=== PATIENT | female | born 1985 | race Caucasian/White ===

== ENCOUNTER → 2017-03-23 | Outpatient (CLI) | payer OTHER | LOC: MW.LAB 08:16 | PROVIDERS: ATTEND Specialist | DX: Z31.83 Encounter for assisted reproductive fertility procedure cycle (principal) | CPT/HCPCS: 36415; 82670; 84443 ==

== ENCOUNTER 2017-07-07 12:58 | Emergency (ER) | payer OTHER ==
--- NOTE | 2017-07-07 13:27 | EDM.PDOC ---
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 and presents with issues of seeing pink or red discharge when she wipes. According to the patient she has had nausea and intermittent vomiting threat this entire and takes Diglegis and has a prescription for Phenergan that she has not filled. She says she usually can tolerate the nausea and she will only have intermittent vomiting. The patient says that this morning she had the nausea and vomiting and she thought she had to urinate at the same time so she sat on the toilet and when she wiped after urinating, which was very forceful and she vomited simultaneously with passing her urine, she noticed some pink tinge to the toilet tissue. She says that she has continued to see that pink tinge and then she noticed some redness while she was in a class today here at the hospital--she noticed on her light pad. She is not gushing blood and has not had to use a heavy pad.. The patient says that she has had cramps and aching in her pelvis but that has been ongoing for several weeks and is not new or different. The patient has not had sexual intercourse in the last several days. The patient has no surgical history except a cholecystectomy and says that she has hypothyroidism for which she takes medication. The patient currently denies any abdominal or pelvic discomfort that is new or different and she has no dysuria frequency or flank pain. She's currently not nauseated. Patient says she is eating and drinking in between the nausea and vomiting. Dr. Dany urbano about this patient and she contacted her directly and she requested that we've these seeing her in here in the ED for evaluation for cervicitis and also perform an ultrasound. Patient is an IVF twin gestation Review of systems: As per history of present illness and below otherwise all systems reviewed and negative. Past medical history: As per history of present illness and as reviewed below otherwise noncontributory. Surgical history: As per history of present illness and as reviewed below otherwise noncontributory. Social history: No reported history of drug or alcohol abuse. Family history: As per history of present illness and as reviewed below otherwise noncontributory. Physical exam: Gen.: Well-developed well-nourished female who is mildly overweight and nontoxic appearing. She moves easily in the bed. HEENT: Atraumatic, normocephalic, negative for conjunctival pallor or scleral icterus, mucous membranes moist, throat clear, neck supple, nontender, trachea midline. Lungs: Clear to auscultation, breath sounds equal bilaterally, chest nontender. Heart: S1S2, regular rate and rhythm no overt murmurs Abdomen: Soft, nondistended, nontender. Negative for masses or hepatosplenomegaly. Negative for costovertebral tenderness. Pelvis: Stable nontender. Genitourinary: Sternal genitalia are within normal limits without any lesions or masses or erythema, there is a copious amount of grayish cloudy discharge in the vault but no blood is visualized, the cervix was not friable and the os was closed, the uterus was age-appropriate size without tenderness Rectal: Deferred. Extremities: Atraumatic, negative for cords or calf pain. Neurovascular unremarkable. Neuro: Awake, alert, oriented. Cranial nerves II through XII unremarkable. Cerebellum unremarkable. Motor and sensory unremarkable throughout. Exam nonfocal. Diagnostics: UA, urine culture if indicated, pelvic ultrasound specifically identified cervical length per direction of Dr. Corbett, probe for trichomoniasis Gardnerella and yeast Therapeutics: 1549: There are numerous delays with getting the appropriate information from this pelvic ultrasound, more specifically an exact cervical length. I discussed this case with Dr. corbett who is comfortable with discharging the patient home with close follow-up in the clinic. I advised the patient to continue her Diclegis and to fill her prescription for Phenergan so that she can improve her nausea and vomiting. I advised her to push hydration and to continue to monitor if she's having a vaginal spotting and also to monitor her urine to see if there is bleeding in the urine. I advised her to call the clinic on Sunday and reasons to return to the ED. Once I am able to get an exact cervical length from teleradiology I will notify Dr. corbett per her direction if it is less than 2 cm Impression: Vaginal bleeding in second trimester , twin gestation stable Definitive disposition and diagnosis as appropriate pending reevaluation and review of above. - Related Data Allergies Allergy/AdvReac Type Severity Reaction Status Date / Time No Known Allergies Allergy Verified 07/07/17 13:10 Home Meds: Home Meds Doxylamine/Pyridoxine HCl [Diclegis Dr 10-10 mg Tablet] 2 tab PO 07/07/17 [ History] Levothyroxine [Synthroid] 50 mcg PO ACBREAKFAST 07/07/17 [History] Social & Family History - Tobacco Use Smoking Status *Q: Never Smoker Second Hand Smoke Exposure: No - Alcohol Use Days Per Week of Alcohol Use: 0 - Recreational Drug Use Recreational Drug Use: No ED ROS GENERAL - Review of Systems Review Of Systems: ROS reveals no pertinent complaints other than HPI. ED EXAM, GENERAL - Physical Exam Exam: See Below (See dictation) Course - Vital Signs Last Recorded V/S: Last Vital Signs Temp 36.5 C 07/07/17 13:07 Pulse 101 H 07/07/17 13:07 Resp 12 07/07/17 13:07 BP 146/89 H 07/07/17 13:07 Pulse Ox 97 07/07/17 13:07 - Orders/Labs/Meds Orders: Active Orders 24 hr Category Date Time Status OB 2 Or 3 Tri Sgl 1st Gest [US] Stat Exams 07/07/17 13:21 Taken CULTURE GENITAL [RM] Stat Lab 07/07/17 14:17 Received Labs: Laboratory Tests 07/07/17 07/07/17 Range/Units 13:23 14:17 Urine Color LEW Urine Appearance CLEAR Urine pH 5.5 (5.0-8.0) Ur Specific Eagar >= 1.030 (1.001-1.035) Urine Protein NEGATIVE (NEGATIVE) mg/dL Urine Glucose (UA) NEGATIVE (NEGATIVE) mg/dL Urine Ketones NEGATIVE (NEGATIVE) mg/dL Urine Occult Blood LARGE H (NEGATIVE) Urine Nitrite NEGATIVE (NEGATIVE) Urine Bilirubin NEGATIVE (NEGATIVE) Urine Urobilinogen 0.2 (<2.0) EU/dL Ur Leukocyte Esterase NEGATIVE (NEGATIVE) Urine RBC 30-40 (0-2/HPF) Urine WBC 0-5 (0-5/HPF) Ur Epithelial Cells MODERATE (NONE-FEW) Urine Bacteria FEW (NEGATIVE) Sari species DNA NEGATIVE (NEGATIVE) Gardnerella DNA Probe NEGATIVE (NEGATIVE) Trichomonas DNA Probe NEGATIVE (NEGATIVE) Departure - Departure Time of Disposition: 15:57 Disposition: Home, Self-Care 01 Condition: Good Clinical Impression: Vaginal bleeding in Twin Qualifiers: Multiple gestation type: unspecified Trimester: second trimester Qualified Code (s): O30.002 - Twin , unspecified number of placenta and unspecified number of amniotic sacs, second trimester - Discharge Information Referrals: Tobias Dubois MD [Primary Care Provider] - Forms: ED Department Discharge Additional Instructions: The following information is given to patients seen in the emergency department who are being discharged to home. This information is to outline your options for follow-up care. We provide all patients seen in our emergency department with a follow-up referral. The need for follow-up, as well as the timing and circumstances, are variable depending upon the specifics of your emergency department visit. If you don't have a primary care physician on staff, we will provide you with a referral. We always advise you to contact your personal physician following an emergency department visit to inform them of the circumstance of the visit and for follow-up with them and/or the need for any referrals to a consulting specialist. The emergency department will also refer you to a specialist when appropriate. This referral assures that you have the opportunity for followup care with a specialist. All of these measure are taken in an effort to provide you with optimal care, which includes your followup. Under all circumstances we always encourage you to contact your private physician who remains a resource for coordinating your care. When calling for followup care, please make the office aware that this follow-up is from your recent emergency room visit. If for any reason you are refused follow-up, please contact the [facility] emergency department at and ask to speak to the emergency department charge nurse. [facility] [address] [place] [address] [phone] Push hydration, nothing in the vagina until you're cleared by Dr. Noguera and please call the clinic on Sunday for follow-up as we discussed. Return to ER as needed and as discussed. Please fill your prescription for Phenergan if you have not done so are ready and start taking it as needed and as we discussed. Please monitor your urine output as we discussed - My Orders Last 24 Hours: My Active Orders 07/07/17 13:21 OB 2 Or 3 Tri Sgl 1st Gest [US] Stat 07/07/17 14:17 CULTURE GENITAL [RM] Stat - Assessment/Plan Last 24 Hours: My Active Orders 07/07/17 13:21 OB 2 Or 3 Tri Sgl 1st Gest [US] Stat 07/07/17 14:17 CULTURE GENITAL [RM] Stat
[2017-07-07 16:29] VITALS: BP 143/83
--- NOTE | 2017-07-09 13:56 | US ---
EXAM DATE: 07/07/17 PATIENT'S AGE: 31 Patient: BHARAT NAVARRO Facility: [place], [place] Site . Site : 1985 Study: US OB Pelvis [id number] 2:41:33 PM Ordering Physician: Arron Rain Final Report: HISTORY: Twin , spotting. TECHNIQUE: Obstetric ultrasound. COMPARISON: No prior. FINDINGS: Living twin gestation. Closed normal length cervix. Fetus A: Calculated gestational age of 15 weeks, 6 days based on ultrasound measurements with an estimated weight of 132 g which is at the 38th percentile. heart rate 150 beats per minute. - Measurements: Biparietal diameter 3.1 cm 15 weeks, 6 days. Head circumference 11.7 cm 15 weeks, 6 days. Abdominal circumference 9.6 cm 15 weeks, 6 days. Femur length 1.9 cm 15 weeks, 5 days. - There is a normal quantity amniotic fluid within the gestational sac of fetus A. No complications. - - Fetus B: Calculated gestational age based on ultrasound measurements of 15 weeks , 6 days. Estimated weight is 133 g which is at the 31st percentile. Heart rate of fetus B is 146 beats per minute. - Measurements: Biparietal diameter 3.1 cm 15 weeks, 6 days. Head circumference 11.8 cm 15 weeks, 6 days. Abdominal circumference 9.8 cm 15 weeks, 6 days. Femur length 1.9 cm 15 weeks, 4 days. - There is a normal quantity of amniotic fluid within the gestational sac of fetus B. No complications. IMPRESSION: 1. Living twin gestation with calculated gestational age based on ultrasound measurements of 15 weeks, 6 days. Concordant size of fetus A and B. 2. No complications seen. Dictated by Jeremiah Padilla MD @ 07/07/2017 2:55:53 PM Dictated by: Jeremiah Padilla MD @ 07/07/2017 14:56:02 ----- ADDENDUM ----- Addendum: I was asked to review this case and comment on the cervical length.The cervix is measured on several images with endovaginal technique. It measures between 3.6 and 4.6 cm. There is no prolapse of parts or funneling. Sonolucency adjacent to the cervix on image 4, series 1-1, is nonspecific, but may be related to tissue edema/fluid. This is amenable to sonographic followup. Dictated by Tito Gaviria MD @ Jul 07 2017 4:39PM (Electronic Signature) Report Signed by Proxy. FERNANDA
== END 2017-07-07 16:07 | disposition home or self-care (01) ==
LOC: MW.ED 12:58
DX: O20.9 Hemorrhage in early pregnancy, unspecified (principal); O30.002 Twin pregnancy, unspecified number of placenta and unspecified number of amniotic sacs, second trimester; E03.9 Hypothyroidism, unspecified; Z90.49 Acquired absence of other specified parts of digestive tract; Z3A.16 16 weeks gestation of pregnancy
CPT/HCPCS: 76805; 76805-26; 81001; 87070; 87480; 87510; 87660; 99283; 99284-25

== ENCOUNTER 2020-07-23 19:51 | Emergency (ER) | payer OTHER ==
[2020-07-23] MEDS ORDERED: Sodium Chloride 0.9% 10 ML Syringe FLUSH PRN (20:13)
[2020-07-23] MEDS ORDERED: Sodium Chloride 0.9% 2.5 ML Syringe FLUSH PRN (20:13)
--- NOTE | 2020-07-23 20:24 | EDM.PDOC ---
ED HPI GENERAL MEDICAL PROBLEM - General Chief Complaint: Chest Pain Stated Complaint: CHEST PAIN, HEAVINESS Time Seen by Provider: 07/23/20 20:06 - History of Present Illness INITIAL COMMENTS - FREE TEXT/NARRATIVE: History of present illness: [] The patient woke up feeling okay. Then shortly after she woke up she began to have occasional pains that felt like somebody was stabbing her with a knife in the left anterior chest. This was above the area of the nipple or thereabouts. It happened intermittently but with increasing frequency throughout the day. Gradually but she began to feel like she cannot get a deep breath and therefore is a little short of breath. She has no fever cough diaphoresis or nausea. The pain is now associated with a fairly constant pressure over the left side of her chest and feels like somebody sitting on her. The patient's past history is positive for twice and obesity. She is not treated for diabetes cholesterol hypertension. She does not have any recent trips or immobilization. She is not on exogenous hormones. She does not smoke. The patient's family history is negative for thromboembolic disease, premature coronary vessel disease, or stroke. Review of systems: As per history of present illness and below otherwise all systems reviewed and negative. Past medical history: As per history of present illness and as reviewed below otherwise noncontributory. Surgical history: As per history of present illness and as reviewed below otherwise noncontributory. Social history: No reported history of drug or alcohol abuse. Family history: As per history of present illness and as reviewed below otherwise noncontributory. Physical exam: Constitutional -he is, well developed, well-nourished and in no acute distress HEENT - normocephalic, no evidence of trauma - external nose and mouth normal - no mass in neck and no JVD - mucosae moist EYES - full EOM, PERRL, no icterus - no evidence of inflammation, injection, or drainage Respiratory - no respiratory distress, equal bilateral expansion, lungs clear to auscultation and no abnormal lung sounds Cardiovascular - Regular Rhythm with S1 and S2 appreciated and no murmur, gallop or rub. GI - abdomen soft without distension or organomegaly - normal bowel sounds - no guard or rebound Musculoskeletal no gross deformity of long bones or joints - no tenderness, swelling or edema Neurologic - Alert and oriented times four - CN II-XII grossly intact - motor sensory and coordination symmetrically normal Psychiatric - appropriate mood and affect with normal thought content Hematologic - No petechiae or purpura - mucosa appropriate color and sclera not pale - normal nail bed color and refill Integument - no rash or evidence of trauma - normal turgor Diagnostics: [] Therapeutics: [] Impression: [] Plan: [] Definitive disposition and diagnosis as appropriate pending reevaluation and review of above. 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 ED EXAM, GENERAL - Physical Exam Exam: See Below Free Text/Narrative:: My physical exam is in the HPI EKG INTERPRETATION EKG Date: 07/23/20 Time: 20:29 Rhythm: NSR Rate (Beats/Min): 69 [place]: Normal P-Wave: Present QRS: Normal Comparison: No Change (02/12/2015 there is no change except the rate is now normal. impression no acute distress) Course - Vital Signs Text/Narrative:: Did well. Patient only gets 5 or 6 hours of sleep at night and has 2 3-year-olds at home. Costochondritis is the most likely diagnosis and something to reduce sleep plus anti-inflammatory are suggested Last Recorded V/S: Last Vital Signs Temp 97 F 07/23/20 19:58 Pulse 81 07/23/20 19:58 Resp 07/23/20 19:58 BP 139/78 07/23/20 19:58 Pulse Ox 97 07/23/20 19:58 - Orders/Labs/Meds Orders: Active Orders 24 hr Category Date Time Status EKG Documentation Completion [RC] AM Care 07/23/20 20:13 Active Sodium Chloride 0.9% [Saline Flush] Med 07/23/20 20:13 Active 10 ml FLUSH ASDIRECTED PRN Sodium Chloride 0.9% [Saline Flush] Med 07/23/20 20:13 Active 2.5 ml FLUSH ASDIRECTED PRN Saline Lock Insert [OM.PC] Stat Oth 07/23/20 20:13 Ordered Medication Orders Sodium Chloride (Saline Flush) 10 ml FLUSH ASDIRECTED PRN PRN Reason: Keep Vein Open Sodium Chloride (Saline Flush) 2.5 ml FLUSH ASDIRECTED PRN PRN Reason: Keep Vein Open Labs: Laboratory Tests 07/23/20 07/23/20 07/23/20 Range/Units 20:00 20:00 20:00 WBC 9.83 (4.0-11.0) K/uL RBC 4.91 (4.30-5.90) M/uL Hgb 14.6 (12.0-16.0) g/dL Hct 43.2 (36.0-46.0) % MCV 88.0 (80.0-98.0) fL MCH 29.7 (27.0-32.0) pg MCHC 33.8 (31.0-37.0) g/dL RDW Std Deviation 39.0 (28.0-62.0) fl RDW Coeff of Golden 12 (11.0-15.0) % Plt Count 257 (150-400) K/uL MPV 10.60 (7.40-12.00) fL Neut % (Auto) 50.4 (48.0-80.0) % Lymph % (Auto) 39.9 (16.0-40.0) % [place] % (Auto) 7.9 (0.0-15.0) % Eos % (Auto) 1.5 (0.0-7.0) % Baso % (Auto) 0.3 (0.0-1.5) % Neut # (Auto) 5.0 (1.4-5.7) K/uL Lymph # (Auto) 3.9 H (0.6-2.4) K/uL [place] # (Auto) 0.8 (0.0-0.8) K/uL Eos # (Auto) 0.2 (0.0-0.7) K/uL Baso # (Auto) 0.0 (0.0-0.1) K/uL Nucleated RBC % 0.0 /100WBC Nucleated RBCs # 0 K/uL D-Dimer, Quantitative (0.0-0.50) mg/L FEU Sodium 141 (136-145) mmol/L Potassium 3.9 (3.5-5.1) mmol/L Chloride 105 (98-107) mmol/L Carbon Dioxide 27.4 (21.0-32.0) mmol/L BUN 13 (7.0-18.0) mg/dL Creatinine 1.0 (0.6-1.0) mg/dL Est Cr Clr Drug Dosing 79.96 mL/min Estimated GFR (MDRD) > 60.0 ml/min Glucose 117 H (74-106) mg/dL Calcium 8.7 (8.5-10.1) mg/dL Troponin I < 0.050 (0.000-0.056) ng/mL HCG, Qual NEGATIVE (NEG) 07/23/20 Range/Units 20:00 WBC (4.0-11.0) K/uL RBC (4.30-5.90) M/uL Hgb (12.0-16.0) g/dL Hct (36.0-46.0) % MCV (80.0-98.0) fL MCH (27.0-32.0) pg MCHC (31.0-37.0) g/dL RDW Std Deviation (28.0-62.0) fl RDW Coeff of Golden (11.0-15.0) % Plt Count (150-400) K/uL MPV (7.40-12.00) fL Neut % (Auto) (48.0-80.0) % Lymph % (Auto) (16.0-40.0) % [place] % (Auto) (0.0-15.0) % Eos % (Auto) (0.0-7.0) % Baso % (Auto) (0.0-1.5) % Neut # (Auto) (1.4-5.7) K/uL Lymph # (Auto) (0.6-2.4) K/uL Dim[place] # (Auto) (0.0-0.8) K/uL Eos # (Auto) (0.0-0.7) K/uL Baso # (Auto) (0.0-0.1) K/uL Nucleated RBC % /100WBC Nucleated RBCs # K/uL D-Dimer, Quantitative 0.22 (0.0-0.50) mg/L FEU Sodium (136-145) mmol/L Potassium (3.5-5.1) mmol/L Chloride (98-107) mmol/L Carbon Dioxide (21.0-32.0) mmol/L BUN (7.0-18.0) mg/dL Creatinine (0.6-1.0) mg/dL Est Cr Clr Drug Dosing mL/min Estimated GFR (MDRD) ml/min Glucose (74-106) mg/dL Calcium (8.5-10.1) mg/dL Troponin I (0.000-0.056) ng/mL HCG, Qual (NEG) Meds: Medications Generic Name Dose Route Start Last Admin Trade Name Freq PRN Reason Stop Dose Admin Sodium Chloride 10 ml 07/23/20 20:13 Saline Flush FLUSH ASDIRECTED PRN Keep Vein Open Sodium Chloride 2.5 ml 07/23/20 20:13 Saline Flush FLUSH ASDIRECTED PRN Keep Vein Open Discontinued Medications Generic Name Dose Route Start Last Admin Trade Name Freq PRN Reason Stop Dose Admin Ketorolac Tromethamine 15 mg 07/23/20 21:12 Toradol IVPUSH 07/23/20 21:13 ONETIME ONE Departure - Departure Time of Disposition: 21:14 Disposition: Home, Self-Care 01 Condition: Good Clinical Impression: Costochondritis - Discharge Information Prescriptions: methylPREDNISolone [Medrol Dose Pack] 4 mg PO DAILY #21 tab Instructions: Costochondritis, [id number] Forms: ED Department Discharge Additional Instructions: The following information is given to patients seen in the emergency department who are being discharged to home. This information is to outline your options for follow-up care. We provide all patients seen in our emergency department with a follow-up referral. The need for follow-up, as well as the timing and circumstances, are variable depending upon the specifics of your emergency department visit. If you don't have a primary care physician on staff, we will provide you with a referral. We always advise you to contact your personal physician following an emergency department visit to inform them of the circumstance of the visit and for follow-up with them and/or the need for any referrals to a consulting specialist. The emergency department will also refer you to a specialist when appropriate. This referral assures that you have the opportunity for follow-up care with a specialist. All of these measure are taken in an effort to provide you with optimal care, which includes your follow-up. Under all circumstances we always encourage you to contact your private physician who remains a resource for coordinating your care. When calling for follow-up care, please make the office aware that this follow-up is from your recent emergency room visit. If for any reason you are refused follow-up, please contact the [facility] Emergency Department at and asked to speak to the emergency department charge nurse. [facility] [address] [place] [address] [place] [address] Sepsis Event Note (ED) - Evaluation Sepsis Screening Result: No Definite Risk - Focused Exam Vital Signs: Vital Signs Temp Pulse Resp BP Pulse Ox 07/23/20 19:58 97 F 81 19 139/78 97 - My Orders Last 24 Hours: My Active Orders 07/23/20 20:13 EKG Documentation Completion [RC] AM Sodium Chloride 0.9% [Saline Flush] 10 ml FLUSH ASDIRECTED PRN Sodium Chloride 0.9% [Saline Flush] 2.5 ml FLUSH ASDIRECTED PRN Saline Lock Insert [OM.PC] Stat - Assessment/Plan Last 24 Hours: My Active Orders 07/23/20 20:13 EKG Documentation Completion [RC] AM Sodium Chloride 0.9% [Saline Flush] 10 ml FLUSH ASDIRECTED PRN Sodium Chloride 0.9% [Saline Flush] 2.5 ml FLUSH ASDIRECTED PRN Saline Lock Insert [OM.PC] Stat
[2020-07-23 20:30] LABS: BLOOD UREA NITROGEN,BUN 13 mg/dL (7.0-18.0); CARBON DIOXIDE,CO2 27.4 mmol/L (21.0-32.0); CHLORIDE,CL 105 mmol/L (98-107); GLUCOSE RANDOM 117 mg/dL (74-106); POTASSIUM,K 3.9 mmol/L (3.5-5.1); SODIUM,NA 141 mmol/L (136-145)
--- NOTE | 2020-07-23 20:57 | CR ---
Chest: 2 views of the chest were obtained. Comparison: Prior chest x-ray of 02/12/15. Heart size and mediastinum are within normal limits for technique. Lungs are clear with no acute parenchymal change. Bony structures appear within normal limits for the patient's age. Impression: 1. Nothing acute is seen on 2 view chest x-ray. Diagnostic code #1 This report was dictated in MDT
[2020-07-23] MEDS ORDERED: Ketorolac 30 MG/ML SDV IVPUSH ONE (21:12)
[2020-07-23 21:40] VITALS: BP 126/76; PULSE 78
== END 2020-07-23 21:35 | disposition home or self-care (01) ==
LOC: MW.ED 19:51
DX: M94.0 Chondrocostal junction syndrome [Tietze] (principal)
CPT/HCPCS: 36415; 71046; 80048; 84484; 84703; 85025; 85379; 93005; 96374; 99285; J1885; 99284

== ENCOUNTER 2021-07-16 14:16 | Emergency (ER) | payer OTHER ==
[2021-07-16] MEDS ORDERED: Sodium Chloride 0.9% 2.5 ML Syringe FLUSH PRN (14:51)
[2021-07-16] MEDS ORDERED: Sodium Chloride 0.9% 10 ML Syringe FLUSH PRN (14:51)
--- NOTE | 2021-07-16 14:56 | EDM.PDOC ---
ED HPI GENERAL MEDICAL PROBLEM - General Chief Complaint: General Stated Complaint: LIGHT HEADED, FAINTED, BLACK STOOLS Time Seen by Provider: 07/16/21 14:44 - History of Present Illness INITIAL COMMENTS - FREE TEXT/NARRATIVE: 35-year-old female with no significant past medical history presenting with lightheadedness syncope after a bowel movement last night fatigue and black stool this morning. Patient states that throughout yesterday she did not feel very well she had some lightheadedness and some weakness. She went to have a bowel movement the vomit was soft but not particularly hard following the completion of the bowel movement she had profound lightheadedness followed by syncope. No palpitations no chest pain or shortness of breath. Throughout the morning she had weakness and fatigue. No nausea or vomiting no abdominal pain. She had a solitary episode of very dark almost black stool this afternoon. She is no history of recent NSAID use she is a non-smoker no history of GI bleeding though she does note some trouble with dyspepsia and she has been taking Tums for which she feels is heartburn for the last few days. - Related Data Allergies Allergy/AdvReac Type Severity Reaction Status Date / Time No Known Allergies Allergy Verified 07/16/21 14:45 Home Meds: Home Meds . [No Known Home Meds] 07/16/21 [History] Past Medical History - Past Health History Medical/Surgical History: Denies Medical/Surgical History HEENT History: Reports: None Cardiovascular History: Reports: None Respiratory History: Reports: Other (See Below) Other Respiratory History: pleurisy Gastrointestinal History: Reports: None Genitourinary History: Reports: None CLAY THROWER History: Reports: , Spontaneous Other CLAY THROWER History: x2 Musculoskeletal History: Reports: None Neurological History: Reports: None Psychiatric History: Reports: None Endocrine/Metabolic History: Reports: Hypothyroidism Hematologic History: Reports: None Immunologic History: Reports: None Oncologic (Cancer) History: Reports: None Dermatologic History: Reports: None - Infectious Disease History Infectious Disease History: Reports: Chicken Pox - Past Surgical History Head Surgeries/Procedures: Reports: None HEENT Surgical History: Reports: Tonsillectomy Respiratory Surgical History: Reports: None GI Surgical History: Reports: Cholecystectomy Female Surgical History: Reports: Section Endocrine Surgical History: Reports: None Social & Family History - Family History Family Medical History: No Pertinent Family History - Tobacco Use Tobacco Use Status *Q: Never Tobacco User Second Hand Smoke Exposure: No - Caffeine Use Caffeine Use: Reports: None - Recreational Drug Use Recreational Drug Use: No ED ROS GENERAL - Review of Systems Review Of Systems: See Below Free Text/Narrative/Comment: General: No fever. Skin: No rash. Eyes: No vision problems. ENT: No sore throat. Neck: No neck stiffness. Respiratory: No shortness of breath. Cardiac: No chest pain. Gastrointestinal: Per HPI Urinary: No dysuria. Musculoskeletal: No myalgias/arthralgias. Neurologic: No headache. ED EXAM, GENERAL - Physical Exam Exam: See Below Free Text/Narrative:: General Appearance: No acute distress, appears comfortable Skin: No rash HEENT: Normocephalic/atraumatic, sclera anicteric, mucous membranes moist Neck: Normal range of motion Chest and Lungs: Bilateral breath sounds, clear to auscultation Cardiovascular: Minimally tachycardic rate regular rhythm intact distal perfusion Abdomen: Soft, non-tender Back: Normal Musculoskeletal: No edema or tenderness Neurologic: Awake, alert, no obvious deficits, moving all extremities Psychiatric: Appropriate, cooperative #1 Interpretation EKG Date: 07/16/21 Time: 15:00 EKG Interpretation Comments: Normal sinus rhythm rate of 93 normal axis and intervals no acute ischemia normal EKG Course - Vital Signs Last Recorded V/S: Last Vital Signs Temp 97.2 F 07/16/21 14:40 Pulse 88 07/16/21 17:36 Resp 18 07/16/21 17:36 BP 129/84 07/16/21 17:36 Pulse Ox 97 07/16/21 17:36 - Orders/Labs/Meds Orders: Active Orders 24 hr Category Date Time Status CORONAVIRUS COVID-19 MAX [MOLEC] Stat Lab 07/16/21 17:50 Received Sodium Chloride 0.9% [Normal Saline] 1,000 ml Med 07/16/21 15:00 Active IV ASDIRECTED Sodium Chloride 0.9% [Saline Flush] Med 07/16/21 14:51 Active 10 ml FLUSH ASDIRECTED PRN Sodium Chloride 0.9% [Saline Flush] Med 07/16/21 14:51 Active 2.5 ml FLUSH ASDIRECTED PRN Saline Lock Insert [OM.PC] Stat Oth 07/16/21 14:51 Ordered Medication Orders Sodium Chloride (Normal Saline) 1,000 mls @ 999 mls/hr IV ASDIRECTED KIRAN Last Admin: 07/16/21 15:16 Dose: 999 mls/hr Documented by: KING Sodium Chloride (Sodium Chloride 0.9% 10 Ml Syringe) 10 ml FLUSH ASDIRECTED PRN PRN Reason: Keep Vein Open Last Admin: 07/16/21 15:17 Dose: 10 ml Documented by: KING Sodium Chloride (Sodium Chloride 0.9% 2.5 Ml Syringe) 2.5 ml FLUSH ASDIRECTED PRN PRN Reason: Keep Vein Open Last Admin: 07/16/21 15:17 Dose: 2.5 ml Documented by: [id number] Labs: Laboratory Tests 07/16/21 07/16/21 Range/Units 15:15 15:15 WBC 9.01 (4.0-11.0) K/uL RBC 4.66 (4.30-5.90) M/uL Hgb 13.6 (12.0-16.0) g/dL Hct 40.2 (36.0-46.0) % MCV 86.3 (80.0-98.0) fL MCH 29.2 (27.0-32.0) pg MCHC 33.8 (31.0-37.0) g/dL RDW Std Deviation 38.8 (28.0-62.0) fl RDW Coeff of Golden 13 (11.0-15.0) % Plt Count 249 (150-400) K/uL MPV 10.80 (7.40-12.00) fL Neut % (Auto) 54.2 (48.0-80.0) % Lymph % (Auto) 36.8 (16.0-40.0) % Graham % (Auto) 7.8 (0.0-15.0) % Eos % (Auto) 1.0 (0.0-7.0) % Baso % (Auto) 0.2 (0.0-1.5) % Neut # (Auto) 4.9 (1.4-5.7) K/uL Lymph # (Auto) 3.3 H (0.6-2.4) K/uL Graham # (Auto) 0.7 (0.0-0.8) K/uL Eos # (Auto) 0.1 (0.0-0.7) K/uL Baso # (Auto) 0.0 (0.0-0.1) K/uL Nucleated RBC % 0.0 /100WBC Nucleated RBCs # 0 K/uL Sodium 142 (136-145) mmol/L Potassium 3.9 (3.5-5.1) mmol/L Chloride 107 (98-107) mmol/L Carbon Dioxide 25.2 (21.0-32.0) mmol/L BUN 23 H (7.0-18.0) mg/dL Creatinine 1.0 (0.6-1.0) mg/dL Est Cr Clr Drug Dosing 79.21 mL/min Estimated GFR (MDRD) > 60.0 ml/min Glucose 100 (74-106) mg/dL Calcium 8.6 (8.5-10.1) mg/dL Magnesium 1.8 (1.8-2.4) mg/dL Total Bilirubin 0.2 (0.2-1.0) mg/dL AST 11 L (15-37) IU/L ALT 23 (14-63) IU/L Alkaline Phosphatase 96 (46-116) U/L Troponin I < 0.050 (0.000-0.056) ng/mL Total Protein 7.0 (6.4-8.2) g/dL Albumin 3.5 (3.4-5.0) g/dL Globulin 3.5 (2.6-4.0) g/dL Albumin/Globulin Ratio 1.0 (0.9-1.6) Meds: Medications Generic Name Dose Route Start Last Admin Trade Name Freq PRN Reason Stop Dose Admin Sodium Chloride 1,000 mls @ 999 mls/hr 07/16/21 15:00 07/16/21 15:16 Normal Saline IV 999 mls/hr ASDIRECTED KIRAN Administration Sodium Chloride 10 ml 07/16/21 14:51 07/16/21 15:17 Sodium Chloride 0.9% 10 Ml Syringe FLUSH 10 ml ASDIRECTED PRN Administration Keep Vein Open Sodium Chloride 2.5 ml 07/16/21 14:51 07/16/21 15:17 Sodium Chloride 0.9% 2.5 Ml Syringe FLUSH 2.5 ml ASDIRECTED PRN Administration Keep Vein Open Discontinued Medications Generic Name Dose Route Start Last Admin Trade Name Freq PRN Reason Stop Dose Admin Pantoprazole Sodium 40 mg/ 20 mls @ 420 mls/hr 07/16/21 17:32 07/16/21 17:44 Sodium Chloride IVPUSH 07/16/21 17:34 420 mls/hr ONETIME ONE Administration Departure - Departure Time of Disposition: 18:21 Disposition: DC/Tfer to Acute Hospital 02 Condition: Good Clinical Impression: GI bleeding - Discharge Information Referrals: PCP,None [Primary Care Provider] - Forms: ED Department Discharge Sepsis Event Note (ED) - Evaluation Sepsis Screening Result: No Definite Risk - Focused Exam Vital Signs: Vital Signs Temp Pulse Resp BP Pulse Ox 07/16/21 17:36 88 18 129/84 97 07/16/21 14:40 97.2 F 108 H 18 129/84 96 - My Orders Last 24 Hours: My Active Orders 07/16/21 14:51 Sodium Chloride 0.9% [Saline Flush] 10 ml FLUSH ASDIRECTED PRN Sodium Chloride 0.9% [Saline Flush] 2.5 ml FLUSH ASDIRECTED PRN Saline Lock Insert [OM.PC] Stat 07/16/21 15:00 Sodium Chloride 0.9% [Normal Saline] 1,000 ml IV ASDIRECTED 07/16/21 17:50 CORONAVIRUS COVID-19 MAX [MOLEC] Stat - Assessment/Plan Last 24 Hours: My Active Orders 07/16/21 14:51 Sodium Chloride 0.9% [Saline Flush] 10 ml FLUSH ASDIRECTED PRN Sodium Chloride 0.9% [Saline Flush] 2.5 ml FLUSH ASDIRECTED PRN Saline Lock Insert [OM.PC] Stat 07/16/21 15:00 Sodium Chloride 0.9% [Normal Saline] 1,000 ml IV ASDIRECTED 07/16/21 17:50 CORONAVIRUS COVID-19 MAX [MOLEC] Stat Assessment:: 35-year-old female presenting with syncope and concern potentially for GI bleed patient with very minimal tachycardia good blood pressure IV fluid is been ordered CBC CMP troponin EKG magnesium level digital rectal exam pending as well. 1630: Patient's labs are good and heart rate now in the 80s after liter of IV fluid. However, digital rectal exam does reveal gross melena. Will discuss with general surgery. 1633: Patient discussed with Dr. Mane. We do not have the ability to intervene on any source of bleeding and given the ongoing melena he recommends transfer to a higher level of care. 1732: Patient discussed with the [facility] transfer center they will look for placement for the patient. 1800: Pt discussed with Dr. Rangel and accepted for transfer to [facility] in [place]. Patient agreeable for transfer there via ALS. DR. Rangel requests PPI gtt as well.
[2021-07-16] MEDS ORDERED: Sodium Chloride 0.9% 1,000 ML IV SCH (15:00)
[2021-07-16 16:04] LABS: BLOOD UREA NITROGEN,BUN 23 mg/dL (7.0-18.0); CARBON DIOXIDE,CO2 25.2 mmol/L (21.0-32.0); CHLORIDE,CL 107 mmol/L (98-107); GLUCOSE RANDOM 100 mg/dL (74-106); POTASSIUM,K 3.9 mmol/L (3.5-5.1); SODIUM,NA 142 mmol/L (136-145)
[2021-07-16] MEDS ORDERED: Pantoprazole 40 MG in Sodium Chloride 0.9% 20 ML IVPUSH ONE (17:32)
[2021-07-16] MEDS ORDERED: Pantoprazole 80 MG in Sodium Chloride 0.9% 100 ML IV SCH (18:30)
[2021-07-16 19:55] VITALS: BP 115/75; PULSE 89
== END 2021-07-16 20:20 ==
LOC: MW.ED 14:16
DX: K92.2 Gastrointestinal hemorrhage, unspecified (principal)
CPT/HCPCS: 36415; 80053; 83735; 84484; 85025; 87635; 93005; 96374; 96376; 99285; C9113; J7030; U0002